=== PATIENT | male | born 1990 | race African-American/Black ===

== ENCOUNTER 2016-04-30 22:15 | Emergency (ER) | payer SELFPAY ==
[2016-04-30 22:42] VITALS: TEMP 98.6; BMI 34.1
--- NOTE | 2016-04-30 23:33 | DIRPT ---
CLINICAL DATA: Cough and congestion, body aches and chest tightness. Symptoms for 4 days. EXAM: CHEST 2 VIEW COMPARISON: None. FINDINGS: The cardiomediastinal contours are normal. The lungs are clear. Pulmonary vasculature is normal. No consolidation, pleural effusion, or pneumothorax. No acute osseous abnormalities are seen. IMPRESSION: No acute pulmonary process. Electronically Signed By: Darleen Ruiz M.D. On: 04/30/2016 23:31
--- NOTE | 2016-05-01 00:17 | EDPRACDOC ---
- General Information Chief Complaint: Flu-Like Symptoms Stated Complaint: COUGH/CHEST PAIN/FEVER Time Seen by Provider: 04/30/16 23:58 Information Source: Patient Mode Of Arrival: Car Home Medications: Home Medications Albuterol Sulfate [Proair Hfa] 2 puff INH Q4 PRN #1 inhaler 05/01/16 Prednisone [Deltasone, Orasone] 20 mg PO DAILY #20 tab 05/01/16 Allergies/Adverse Reactions: Allergies Allergy/AdvReac Type Severity Reaction Status Date / Time No Known Allergies Allergy Verified 08/19/13 23:35 - History of Present Illness Onset: 2 DAYS Shortness of Breath: Mild Relevant History of: Reports: None Cough: Reports: Non-productive, Clear Rhinorrhea: Reports: Clear Fever Severity/Quality: Reports: subjective Ear Symptoms: Reports: None Associated Signs & Symptoms: Reports: Cough, Fever, Nasal Symptoms. Denies: Nausea, Vomiting, Diarrhea, Myalgia, Rash, Pain with head movement - Treatment Prior to ED Arrival Reported Medications/Treatment [facility] Treatment BLS ED Past Medical History - History Reviewed Yes Nurses notes reviewed and agree except as marked - Patient Medical History Systemic History: Denies: Cancer - Social Medical History Smoking Status: Heavy tobacco smoker (5 or more cigarettes/day or daily pipe/ cigar) ETOH: None Substance Abuse: None Lives With: Family Lives In: Home EDM Review of Systems - Review of Systems ROS Negative Except as Marked: Yes All systems reviewed and were negative except as marked - Physical Exam Constitutional: No apparent distress, Alert Oriented to: Time, Person, Place Last recorded Vital Signs: Last Vital Signs Temp 98.6 F 04/30/16 22:39 Pulse 106 04/30/16 22:39 Resp 20 04/30/16 22:39 BP 159/90 04/30/16 22:39 Pulse Ox 96 04/30/16 22:39 Oxygen Pulse Oxygen Saturation 96 O2 Device Room Air Oxygen Flow Rate Fraction of Inspired Oxygen ( FIO2) - HEENT Head: Normal. negative: Swelling, Tender Eye Exam: Normal. negative: Pale Conjunctiva, Scleral Icterus Oropharynx: Normal, Red. negative: Membranes Dry Neck: Normal. negative: Edema, Meningeal Signs - Respiratory/Cardiovascular Respiratory: Normal - CTA, Rhonchi. negative: Accessory Muscle Use, Rales, Tachypnea Cardiovascular: Normal - Integumentary Skin: Normal, Dry - Neurologic Memory Impaired: Normal Mood Description: Normal - Results Microbiology 04/30/16 22:45 Influenza Type A Antigen Screen - Final Nasal Washing/Aspirate Or Swab NEGATIVE Please note: A NEGATIVE result does not exclude an influenza virus infection. It is a presumptive result and, if required, confirmation should be done using either a virus culture or an FDA-cleared influenza A&B molecular assay. ("NORMAL" value = "NEGATIVE".) Influenza Type B Antigen Screen - Final NEGATIVE Please note: A NEGATIVE result does not exclude an influenza virus infection. It is a presumptive result and, if required, confirmation should be done using either a virus culture or an FDA-cleared influenza A&B molecular assay. ("NORMAL" value = "NEGATIVE".) 04/30/16 22:45 Group A Streptococcus Rapid Screen - Final Throat - Rapid Strep NEGATIVE ("NORMAL" value = "NEGATIVE".) - Diagnostic Imaging Chest Image interpreted by: Radiologist Patient Name: OCTAVIO FARFAN LOC: ED : 1990 AGE: 26 Order Date:04/30/16 Date of Service:04/04 Report # [id number] Ord Physician: Abdelrahman Benavidez DO Exam # [id number] Emergency Physician: Provider,ER Exam(s): [id number] RAD/DG CHEST 2V CLINICAL DATA: Cough and congestion, body aches and chest tightness. Symptoms for 4 days. EXAM: CHEST 2 VIEW COMPARISON: None. FINDINGS: The cardiomediastinal contours are normal. The lungs are clear. Pulmonary vasculature is normal. No consolidation, pleural effusion, or pneumothorax. No acute osseous abnormalities are seen. IMPRESSION: No acute pulmonary process. Electronically Signed By: Darleen Ruiz M.D. On: 04/30/2016 23:31 Electronically Signed By: Darleen Ruiz MD Electronically Signed Date/Time: [id number] Dictate Date/Time: 04/30/16 233 Technologist: Pancho Singleton Transcribed By: Davion Transcribed Date/Time: 04/30/16 2331 - Departure Final Diagnosis: Acute upper respiratory infection Instructions: Upper Respiratory Infection (ED) Education/Counseling Given To: Patient, Family Member Education/Counseling Given Regarding: Diagnosis, Treatment, Prognosis Prescriptions: Albuterol Sulfate [Proair Hfa] 2 puff INH Q4 PRN #1 inhaler PRN Reason: WHEEZE OR COUGH Prednisone [Deltasone, Orasone] 20 mg PO DAILY #20 tab
[2016-05-01 00:31] VITALS: BP 149/84; PULSE 100
== END 2016-05-01 00:26 | disposition home or self-care (01) ==
LOC: ED 22:15
DX: J06.9 Acute upper respiratory infection, unspecified (principal); F17.200 Nicotine dependence, unspecified, uncomplicated
CPT/HCPCS: 71020; 87804; 87880; 99283